=== PATIENT | female | born 1990 | race Caucasian/White ===

== ENCOUNTER → 2020-10-30 08:54 | Outpatient (CLI) | payer BC, SELFPAY ==
--- NOTE | ~2020-10-30 | XR_ITS ---
XR lumbar spine 2-3V DATE: 10/30/2020 09:16 INDICATION: Back pain TECHNIQUE: AP, lateral, coned lateral lumbosacral views COMPARISON: None FINDINGS: Normal alignment of lumbar spine. No fracture or bone destruction, spondylolisthesis. Lumbo sacral interspaces appear well preserved. The lumbar pedicles are intact. The sacroiliac joints appea r normal. IMPRESSION: No significant abnormality Reviewed, dictated and finalized at location A. HT DIRECTOR IMPRESSION: No significant abnormality
--- NOTE | ~2020-10-30 | XR_ITS ---
XR hip BI 2V w AP pelvis DATE: 10/30/2020 09:16 INDICATION: Sacroiliitis. Bilateral hip pain. TECHNIQUE: AP pelvis. AP and lateral views of each hip. COMPARISON: None FINDINGS: The pubic symphysis and sacroiliac joints are intact. No pelvic or hip fracture or dislocat ion. Hip joint spaces are symmetric and well preserved. IMPRESSION: Negative Reviewed, dictated and finalized at location A. ING RECOVERY TEACHER IMPRESSION: Negative
== END ==
PROVIDERS: PCP Nurse Practitioner Family; Visit Provider Internal Medicine
DX: M45.0 Ankylosing spondylitis of multiple sites in spine (principal); M46.1 Sacroiliitis, not elsewhere classified
CPT/HCPCS: 72100; 73521

== ENCOUNTER → 2021-02-22 14:30 | Outpatient (CLI) | payer BC, SELFPAY ==
--- NOTE | ~2021-02-22 | US_ITS ---
US OB <=14 wk fetus w TV DATE: 02/22/2021 14:59 INDICATION: Gestational age determination TECHNIQUE: Real-time imaging and Doppler analysis. Transabdominal and transvaginal approaches. COMPARISON: None FINDINGS: Views of measures 11 cm height, 6.6 cm AP and 8 cm transverse dimension. A normally shaped intrauterine gestational sac is identified, with normal surrounding hyperechogenicity consistent with normal decidual reaction. Yolk sac and pole are detected. heart rate 177 bpm. Hamer-rump length averages 1.9 cm, consistent with 8 weeks 3 days +/- 5 days estimated gestational ag e; JAYLAN: 10/01/2021. Right ovary 2.9 x 2.2 x 3.1 cm. Left ovary 3.5 x 2.7 x 2.5 cm. No pelvic abnormal mass or abnormal pelvic fluid collection is detected. IMPRESSION: Estimated gestational age by crown-rump length of 1.89 cm: 8 weeks 3 days +/- 5 days JAYLAN: 10/01/2021 Reviewed, dictated and finalized at Location A. Reviewed, dictated and finalized at location A.
== END ==
PROVIDERS: Visit Provider Obstetrics & Gynecology
DX: Z34.91 Encounter for supervision of normal pregnancy, unspecified, first trimester (principal); Z3A.01 Less than 8 weeks gestation of pregnancy
CPT/HCPCS: 76801; 76817

== ENCOUNTER → 2021-05-07 13:23 | Outpatient (CLI) | payer BC, SELFPAY ==
--- NOTE | ~2021-05-07 | US_ITS ---
EXAMINATION: US OB /maternal detail DATE: 05/07/2021 14:04 INDICATION: anatomic survey. TECHNIQUE: Real-time ultrasound of the pelvis was performed. COMPARISON: Ultrasound 02/22/2021 FINDINGS: There is a single living fetus in vertex presentation. The placenta is posterior, 4.4 cm from the ce rvix. heart rate is 149 beats per minute (bpm). The amniotic fluid volume is subjectively richard l. The following biometric data were obtained: Biparietal diameter (BPD): 4.6 cm; head circumference (HC): 18.0 cm; abdominal circumference (AC): 15 .0 cm; femur length (FL): 3.1 cm. These measurements are concordant. Estimated weight is 323 g +/- 48 g, which correlates with 93rd percentile when 10/01/21 is used as estimated date of delivery. As single measurements, these parameters are each equal to the following estimated gestational ages w ith ranges of +/- 2 standard deviations: BPD: 20 weeks 0 days (18 weeks 2 days - 21 weeks 5 days). HC: 20 weeks 3 days (19 weeks 0 days - 21 weeks 6 days). AC: 20 weeks 2 days (18 weeks 1 days - 22 weeks 2 days). FL: 19 weeks 3 days (17 weeks 5 days - 21 weeks 2 days). estimated gestational age based solely on measurements from this exam is 20 weeks 0 days +/- 1 weeks 3 days. The cerebral ventricles, cerebellum, cisterna magna, nuchal fold, and visualized portions of the spin e are normal. The heart is normal. The diaphragm, stomach, kidneys, and bladder are normal. There are two umbilical arteries to yield a 3-vessel cord. The cord insertion is normal. IMPRESSION: 1. Single living fetus in vertex presentation. 2. Large for gestational age. Estimated weight is 323 g +/- 48 g, which correlates with 93rd p ercentile when 10/01/21 is used as estimated date of delivery. This date was set by ultrasound on 02/22. 3. Normal anatomic survey. Reviewed, dictated and finalized at location A. IMPRESSION: 1. Single living fetus in vertex presentation. 2. Large for gestational age. Estimated weight is 323 g +/- 48 g, which correlates with 93rd percentile when 10/01/21 is used as estimated date of radhika craft. This date was set by ultrasound on 02/22/2021. 3. Normal anatomic survey.
== END ==
PROVIDERS: Visit Provider Obstetrics & Gynecology
DX: O36.62X0 Maternal care for excessive fetal growth, second trimester, not applicable or unspecified (principal); Z3A.00 Weeks of gestation of pregnancy not specified
CPT/HCPCS: 76805

== ENCOUNTER 2021-09-21 19:47 | Inpatient (IN) | payer BC, SELFPAY ==
[2021-09-21] VITALS (28 sets, daily range): BP systolic 117–146; BP diastolic 62–88; PULSE 76–116; RESP 18; TEMP 36.7–37.4; O2SAT 100; BMI 30.6
[2021-09-21] MEDS: BENZOCAINE 20% AER SPR (*SP) 56 GM CAN 1 SPRAY TOPICAL (00:12)
--- NOTE | 2021-09-21 19:47 | LDADM ---
This patient, Anne-Marie Arriola, was admitted to Labor/Delivery/Recovery 105 on 09/21/21 at 19:47. Plans for labor, pain management and were discussed with patient. Patient/family oriented to hospital policies and general routines including ID bracelet, bed and alarms, visiting hours, pain management, procedures, bathroom and other care routines, personal items, smoking policy, room service/diet and guest tray routines, infant security routines, and visiting hours. Patient/Family are encouraged to report perceived risks to care and to ask questions if they do not understand what they are told or what they should do. See OBIX for further documentation.
[2021-09-21] MEDS: LACTATED RINGERS 1,000 ML 125 ML IV CONT ×2 (20:25→22:05)
[2021-09-21 20:36] LABS: Basophils Percent Auto 0.4 % (0.2-1.2); Eosinophils Percent Auto 0.2 % (0-4.4); Hematocrit 29.7 % (37.0-47.0); Immature Granulocyte Absolute 0.31 K/mm3 (0.00-0.031); Immature Granulocyte Percent A 3.2 % (0-0.5); Lymphocytes Absolute Auto 1.56 K/mm3 (0.9-3.2); Lymphocytes Percent Auto 16.3 % (18.3-44.2); Mean Corpuscular HGB Conc 33.7 g/dl (32-36); Mean Corpuscular Hemoglobin 30.6 pg (26-34); Mean Corpuscular Volume 90.8 fl (80-100); Mean Platelet Volume 10.5 fl (7.4-10.4); Monocytes Absolute Auto 0.4 K/mm3 (0.1-0.6); Monocytes Percent Auto 4.1 % (2.6-8.5); Neutrophils Absolute Auto 7.3 K/mm3 (1.3-6.7); Neutrophils Percent Auto 75.8 % (45.5-73.1); Platelet Count Result 208 k/mm3 (150-375); Red Blood Count 3.27 M/mm3 (4.2-5.4); White Blood Count 9.6 K/mm3 (4.5-10.0)
--- NOTE | 2021-09-21 20:45 | PM.IMHP ---
H&P: HPI History of Present Illness Date/Time: 09/21/21 20:45 Anne-Marie is a 31yo @ 38.4 who presented to L&D in active labor. She was actively sunni and was found to be 6cm dilated. She SROM'ed at 2019. She reports good movement. No bleeding. She has had regular care. Her is complicated by: - Varicella, rubella, and parvo non-immune - Anemia on iron Chief Complaint: contractions Review of Systems Review of Systems: All systems reviewed & are unremarkable except as noted in HPI and below (HPI) [facility] Past Medical History Medical History Anxiety Asthma Goiter Family History Family History Mother Hypertension Grandparent Thyroid disease Hypertension Social History Social History Smoking status: Never smoker Alcohol intake: never Substance use: never Gender identity (if verbalized by the patient): Female Sexual Orientation (if Verbalized by the Patient): Straight or Heterosexual Spiritual care concerns: No Meds Home Medications and Allergies Home Medications Medication Instructions Recorded Confirmed Type PNV cmb#95-ferrous fumarate-FA 1 tablet PO DAILY 09/05/21 09/05/21 History [] ferrous sulfate [Iron (ferrous 325 mg PO BID 09/05/21 09/05/21 History sulfate)] Allergies Allergy/AdvReac Type Severity Reaction Status Date / Time No Known Allergies Allergy Verified 09/19/21 16:08 Vital Signs Vital Signs - 24 hr 09/21/21 20:30 Pulse Rate 89 Blood Pressure 126/77 Exam Const: General: cooperative, healthy appearing, well developed and in distress (with contractions) moderate Resp: Effort & Inspection: normal respiratory effort Cardio: Rate: regular rate GI: Inspection: normal to inspection GI Palp: Yes Soft to palpation : Other: FHT's: 140's/ mod johnnie/ + accels/ variable decels - cat 2 TOCO; ctx's q 2min Cervix: 8/C/0 Membranes: SROM, clear 2019 Presentation: cephalic Skin: General skin exam: normal color Neuro: General: patient oriented x3 Extrem: General: edema Psych: Appearance: grossly normal Affect: normal affect Attitude: cooperative Assessment and Plan Assessment and plan (1) Active labor at term: Status: Acute Additional Plan - admit for active labor at term - GBS negative - continuous monitor; currently reassuring
--- NOTE | 2021-09-21 20:50 | WPDHPUPDATE1 ---
History and Physical Update Update Date/Time: 09/21/21 20:50 History and Physical has been reviewed, including an updated exam of the patient. There are NO changes in the patient's condition. Risks, benefits, and alternatives have been discussed and questions answered. Patient agrees to proceed with procedure.
[2021-09-21] MEDS: OXYTOCIN 30 UNITS/NS 500 ML 30 UNITS/500 ML BAG 999 UNITS IV CONT (22:41)
[2021-09-21] MEDS: fentaNYL CITRATE INJ (*CRX) 100 MCG/2 ML VIAL IV PUSH (22:42)
[2021-09-21] MEDS: fentaNYL CITRATE INJ (*CRX) 100 MCG/2 ML VIAL 50 MCG IV PUSH (22:55)
[2021-09-21] MEDS: OXYTOCIN 30 UNITS/NS 500 ML 30 UNITS/500 ML BAG 125 UNITS IV CONT (23:13)
--- NOTE | 2021-09-21 23:27 | PM.OBPRVD ---
OB - Delivery Note Procedure Delivery date: 09/21/21 Intrapartal events: Deceleration Delivery monitor: external FHT and external uterine Route of delivery: Episiotomy description: Right Mediolateral Delivery repair: vicryl Specimen: Yes Quantitative Blood Loss (ml): 400 Anesthesia type: MAC after delivery Baby Date of : 09/21/21 Time of : 22:39 Weeks of gestation at delivery: 38 (.4) Infant gender: Male Weight (pounds): 7 Weight (ounces): 14 presentation: vertex position: Left Occiput Posterior Placenta delivery description: Expressed and Uterine Exploration (for removal of membranes under MAC) cord vessel description: 3 Vessels and Nuchal Cord score one minute: 3 score five minutes: 7 score ten minutes: 9 Narrative: Anne-Marie presented in active labor and shortly after arrival, spontaneously ruptured membranes. Once she was completely dilated, she pushed with good maternal effort. Occasional heart decels were noted and the patient would be switched from side to side or took breaks from pushing. She was at 2+ station and heart tones were in the 70s. Decision was made to cut a right mediolateral episiotomy to expedite delivery of the head. On the next push the 's head delivered. A nuchal cord was noted but delivered through. The baby's shoulders and body were easily delivered. The infant was immediately placed skin to skin and noted to be limp with minimal cry and poor color and tone. The umbilical cord was clamped and cut and the pediatric nurse immediately took him to the warmer for resuscitation. A segment of the cord was collected for cord gases. The remaining cord blood was collected for typing. With Pitocin running and gentle downward traction on the cord, the placenta delivered dirty Mariee style. The patient was examined and no additional lacerations were noted, except the RML episiotomy. Bleeding was noted and bimanual exam was performed and membranes were removed. The patient did not tolerate the exam and was therefore given fentanyl. Another swipe was performed and more membranes were removed. She did not tolerate any further exams, therefore, anesthesia was contacted and she was given MAC. The additional retained membranes were removed. Bedside US was performed and verified a thin endometrial strip. The episiotomy was repaired in the normal fashion using 2-0 Vicryl. Uterine fundal tone was firm with minimal bleeding. Sponge, lap, instrument, and needle counts were correct at the end of the case.
[2021-09-22] VITALS (33 sets, daily range): BP systolic 116–139; BP diastolic 70–86; PULSE 64–94; RESP 16–18; TEMP 36.6–37.1; O2SAT 98–100
[2021-09-22] MEDS: WITCH HAZEL 40 PADS 1 PAD TOPICAL ×2 (00:12→09:25)
[2021-09-22] MEDS: ceFAZolin 2 GM/D5W 50 ML 2 GM/50 ML BAG IVPB (00:51)
[2021-09-22] MEDS: HYDROcodone/acetaminophen (*CRX) 5-325 MG TABLET 1 TAB PO ×4 (01:56→18:01)
--- NOTE | 2021-09-22 02:40 | OBPPTRN ---
Patient transferred to post room #291 via wheelchair. Support person present. Oriented to unit, room, information board, rooming in, admission packet and security measures. Patient verbalizes understanding.
[2021-09-22] MEDS: BENZOCAINE 20% AER SPR (*SP) 56 GM CAN 1 SPRAY TOPICAL (09:24)
[2021-09-22] MEDS: MULTIVIT/MIN/PREN/FOL AC/IRON TABLET 1 TAB PO (09:25)
[2021-09-22] MEDS: IBUPROFEN 600 MG TABLET PO ×2 (09:25→18:00)
[2021-09-22] MEDS: DOCUSATE SODIUM 100 MG CAPSULE PO ×2 (09:25→18:00)
[2021-09-22] MEDS: LANOLIN (LANSINOH) 7.5 GM CREAM 1 APPLIC TOPICAL (09:25)
[2021-09-22] MEDS: POLYSACCHARIDE IRON COMPLEX 150 MG CAPSULE PO ×2 (09:25→18:00)
--- NOTE | 2021-09-22 09:43 | PM.OBPNVD ---
OB - PN: Subj Subjective Date/time seen: 09/22/21 09:43 Narrative: PPD#1 Anne-Marie reports doing well today. 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 Her pain is controlled with meds, but still having hemorrhoid/tailbone pain. She is tolerating regular diet, voiding, and ambulating without issues. She is planning to breast feeding; he's doing great today and going to be allowed to eat in 1 hour. She would like her son circumcised. OB - PN: Obj Data Labs CBC & Chem 7: 09/21/21 20:23 Labs: Laboratory Results - last 24 hr 09/21/21 09/21/21 20:23 20:23 WBC 9.6 RBC 3.27 L Hgb 10.0 L Hct 29.7 L MCV 90.8 MCH 30.6 MCHC 33.7 RDW 14.0 Plt Count 208 MPV 10.5 H Immature Gran % (Auto) 3.2 H Neut % (Auto) 75.8 H Lymph % (Auto) 16.3 L [place] % (Auto) 4.1 Eos % (Auto) 0.2 Baso % (Auto) 0.4 Lymph # (Auto) 1.56 [place] # (Auto) 0.4 Eos # (Auto) 0.0 Baso # (Auto) 0.0 Abs Immat Gran (auto) 0.31 H Absolute Neuts (auto) 7.3 H Absolute Nucleated RBC 0.0 Nucleated RBC % 0.0 Blood Type A Positive Antibody Screen Negative OB - PN A/P Plan day: 1 Plan: routine care Comments: - Plan for circumcision tomorrow - Pain control; ambulate; regular diet; stay hydrated - Breast feed/pump Time Spent With Patient Time: Total time spent is greater than 50% in coordination of care (as documented) at patient's floor/unit and/or counseling patient: Review of Systems Constitutional: Constitutional: Denies chills, Denies fever(s) and Denies headache(s) Eyes: Eyes: Denies change in vision ENT: Denies dizziness and Denies headache(s) Cardiovascular: Cardiovascular: Denies chest pain, Denies palpitations and Denies dyspnea Respiratory: Respiratory: Denies cough and Denies dyspnea Gastrointestinal: Gastrointestinal: Denies nausea and Denies vomiting Neurologic: Denies dizziness and Denies headache(s) Endocrine: Endocrine: Denies palpitations Exam Const: General: cooperative, comfortable and no acute distress Orientation/consciousness: patient oriented x3 Resp: Effort & Inspection: normal respiratory effort Auscultation: clear to auscultation bilaterally Cardio: Rate: regular rate GI: Inspection: non-distended GI Palp: No abdominal tenderness and Yes Soft to palpation Auscultation: normal bowel sounds : Other: fundus firm Skin: General skin exam: normal color Neuro: General: patient oriented x3 Extrem: General: normal to inspection Psych: Appearance: grossly normal Affect: normal affect Attitude: cooperative
[2021-09-23] MEDS: IBUPROFEN 600 MG TABLET PO ×3 (00:31→15:29)
[2021-09-23 04:42] LABS: Hematocrit 27.7 % (37.0-47.0); Hemoglobin 9.3 g/dL (12.0-15.0)
[2021-09-23 08:02] VITALS: BP 123/75; PULSE 90; RESP 16; TEMP 36.7; O2SAT 99
[2021-09-23] MEDS: POLYSACCHARIDE IRON COMPLEX 150 MG CAPSULE PO (08:02)
[2021-09-23] MEDS: MULTIVIT/MIN/PREN/FOL AC/IRON TABLET 1 TAB PO (08:02)
[2021-09-23] MEDS: DOCUSATE SODIUM 100 MG CAPSULE PO (08:03)
--- NOTE | 2021-09-23 09:49 | PM.OBDSVD ---
DS: Admitting Diagnosis Discharge Date 09/23/21 Admitting Diagnosis contractions DS: Discharge Diagnosis Discharge Diagnosis (1) Normal vaginal delivery: Code(s): O80 - Encounter for full-term uncomplicated delivery Status: Acute (2) Episiotomy pain: Code(s): O90.89 - Other complications of the puerperium, not elsewhere classified; G89.18 - Other acute postprocedural pain Status: Acute OB - DS: Summary OB Procedures : Ultrasound OB Procedures Intrapartum: Spontaneous Vag Delivery OB Procedures: : None Peripartum Data Infant Delivery Method: Natural Vaginal Episiotomy description: Right Mediolateral Procedures: MAC for delivery of retained membranes complications: none 1: Gender: Male Disposition of : home Status at Discharge Functional status at discharge: independent ambulation Overall status at discharge: patient is back to baseline Time Spent with Patient Time attestation: Total time spent providing and/or coordinating discharge services: Exam Const: General: cooperative, healthy appearing, comfortable and no acute distress Orientation/consciousness: patient oriented x3 Resp: Effort & Inspection: normal respiratory effort Auscultation: clear to auscultation bilaterally Cardio: Rate: regular rate GI: Inspection: non-distended GI Palp: No abdominal tenderness and Yes Soft to palpation Auscultation: normal bowel sounds Rectal Exam: External hemorrhoid(s) present : Other: fundus firm Skin: General skin exam: normal color Neuro: General: patient oriented x3 Extrem: General: normal to inspection Psych: Appearance: grossly normal Affect: normal affect Attitude: cooperative DS: Data Data Completed and Pending Pending studies at discharge: Pending at discharge 09/22/21 02:14 Surgical [PTH] Routine Labs on day of discharge: Labs from last 24 hours 09/23/21 04:25 Hgb 9.3 L Hct 27.7 L Discharge Plan Discharge Attending physician on discharge: Idalia Solis Discharging Clinician: Idalia Solis Anticipated Discharge Date/Time: 09/23/21 16:00 Patient Disposition: Home, Self-Care Activity: may shower, may drive after 2 weeks and pelvic rest Diet: regular Patient Instructions: Antibiotic Form Stand Alone Forms: General Discharge Information Follow-up/Referrals: Idalia Solis MD [Physician] - 4 Weeks Discharge Medications: New acetaminophen [Mapap (acetaminophen)] 325 mg Tablet 650 mg PO Q6H PRN (Reason: Mild Pain (1-3) Or Headache) 10 Days Qty: 80 RF: 0 hydrocodone-acetaminophen 5-325 mg Tablet 1 tablet PO Q4H PRN (Reason: Pain Rated 6 Or Greater) 3 Days Qty: 10 RF: 0 docusate sodium 100 mg Capsule 100 mg PO BID 30 Days Qty: 60 RF: 0 ibuprofen 600 mg Tablet 600 mg PO Q6H PRN (Reason: Cramping) 10 Days Qty: 40 RF: 0 Continued PNV cmb#95-ferrous fumarate-FA [] 28 mg iron- 800 mcg Tablet 1 tablet PO DAILY 90 Days Qty: 90 RF: 0 Changed ferrous sulfate [Iron (ferrous sulfate)] 325 mg (65 mg iron) Tablet 325 mg PO DAILY 30 Days Qty: 30 RF: 0 Date of admission: 09/21/21 19:47 Primary Care Provider: ChilangoEssie Admitting Provider: Idalia Solis Attending physician on admission: Idalia Solis Condition: Stable
[2021-09-23] MEDS: MEASLES,MUMPS,RUBELLA VACCINE 0.5 ML VIAL SUB-Q (15:20)
[2021-09-23] MEDS: ACETAMINOPHEN 325 MG TABLET 650 MG PO (15:30)
--- NOTE | 2021-09-23 18:03 | PC.NURSE ---
1100 Patient viewed the discharge video Mother & Baby Care, The First Two Weeks . Patient was given the opportunity and encouraged to ask questions. Patient verbalized understanding of information shared and has been given the mother/baby guide for home reference.
== END 2021-09-23 17:23 | disposition home or self-care (01) | DRG 807 ==
LOC: ANHLDR 20:13 → ANHOB2 09-22 03:02
PROVIDERS: Admitting Provider Obstetrics & Gynecology; PCP Nurse Practitioner Family; Visit Provider Obstetrics & Gynecology
DX: O76 Abnormality in fetal heart rate and rhythm complicating labor and delivery (principal); Z37.0 Single live birth; O99.02 Anemia complicating childbirth; O73.0 Retained placenta without hemorrhage; D64.9 Anemia, unspecified; O69.81X0 Labor and delivery complicated by cord around neck, without compression, not applicable or unspecified; O62.3 Precipitate labor; Z3A.38 38 weeks gestation of pregnancy; Z23 Encounter for immunization
CPT/HCPCS: 36415; 85014; 85018; 85025; 86592; 86850; 86900; 86901; 88307; 90471; 90653; 90710; A9270; G0008; J0690; J2590; J3010; J7120

== ENCOUNTER → 2022-03-04 09:17 | Outpatient (CLI) | payer BC, SELFPAY ==
--- NOTE | ~2022-03-04 | MMUS_ITS ---
EXAMINATION: MM diagnostic steffanie BI w zelalem, US breast RT limited HISTORY: Palpable right breast abnormality. History of fibrocystic disease. TECHNIQUE: Additional 3-D tomosynthesis images of the breasts were performed and synthetic 2-D images were generated. CAD analysis was submitted and interpreted. High resolution Limited right breast ult rasound was performed. COMPARISON: None BREAST PARENCHYMAL COMPOSITION: The breasts are extremely dense, which lowers the sensitivity of mamm ography FINDINGS: MAMMOGRAPHIC FINDINGS: There are no suspicious masses, calcifications or architectural distortion in either breast to sugges t malignancy. ULTRASOUND: Limited right breast ultrasound: At 10:00, 3 cm from the nipple there is an oval hypoechoic mass kan uring 1.3 x 1.2 x 0.7 cm there there is posterior acoustic enhancement and internal vascularity. Para llel orientation. IMPRESSION: 1. Oval hypoechoic right breast mass at 10:00, 3 cm from the nipple measuring up to 1.3 cm, likely be nign. 2. Recommend 6 month follow-up limited right breast ultrasound BI-RADS category 3, probably benign findings. Reviewed, dictated and finalized at location A. IMPRESSION: 1. Oval hypoechoic right breast mass at 10:00, 3 cm from the nipple measuring u p to 1.3 cm, likely benign. 2. Recommend 6 month follow-up limited right breast ultrasound BI-RADS category 3, probably benign findings.
== END ==
PROVIDERS: PCP Nurse Practitioner Family; Visit Provider Obstetrics & Gynecology
DX: N63.10 Unspecified lump in the right breast, unspecified quadrant (principal); R92.8 Other abnormal and inconclusive findings on diagnostic imaging of breast
CPT/HCPCS: 76642; 77062; 77066; G0279

== ENCOUNTER → 2022-08-09 09:23 | Outpatient (CLI) | payer BC, SELFPAY ==
--- NOTE | ~2022-08-09 | US_ITS ---
EXAMINATION: US breast RT limited HISTORY: Six-month follow-up for probably benign right breast mass TECHNIQUE: Limited right breast ultrasound was performed. FINDINGS: There is a stable 13 mm x 6 mm oval, circumscribed, parallel, hypoechoic mass with posterio r acoustical enhancement and internal vascularity at the 10:00 location 3 cm from the nipple. There h as been no suspicious interval change. IMPRESSION: Stable, probably benign right breast mass. Follow-up targeted right breast ultrasound in six months i s recommended. BI-RADS category 3, probably benign findings. Reviewed, dictated and finalized at location A. ROL CENTER OPERATOR IMPRESSION: Stable, probably benign right breast mass. Follow-up targeted right breast ultr asound in six months is recommended. BI-RADS category 3, probably benign findings.
== END ==
PROVIDERS: PCP Nurse Practitioner Family; Visit Provider Obstetrics & Gynecology
DX: R92.8 Other abnormal and inconclusive findings on diagnostic imaging of breast (principal)
CPT/HCPCS: 76642